=== PATIENT | female | born 1965 | race Caucasian/White ===

== ENCOUNTER → 2024-01-14 | Outpatient (CLI) | payer MEDICAID, SELFPAY ==
--- NOTE | 2024-01-14 14:00 | XR_ITS ---
Examination: Screening digital mammography, bilateral Computer aided detection 3-D breast Tomosynthesis, bilateral Date and time of exam: January 14, 2024 1405 hours Compared to March 28, 2021 Indication: Screening Technique: Nonmagnified MLO, CC views of the breasts to been obtained, reconstructed from 3-D Tomosynthesis images. R2 computer aided detection program utilized for evaluation of suspicious masses and/or abnormal calcifications. 3-D Tomosynthesis images obtained. Findings: The breasts are heterogeneously dense, which may obscure small masses 14 mm focal asymmetry outer left breast 3:00 position anterior depth 12 mm round focal asymmetry upper right breast MLO view, 4.9 cm from the nipple Impression: BI-RADS Category 0: Incomplete: Need additional imaging evaluation 14 mm focal asymmetry outer left breast 3:00 position, recommend follow-up spot tomographic views 12 mm round focal asymmetry upper right breast MLO view, 4.9 cm from the nipple, recommend follow-up spot tomographic views upper outer quadrant right breast Recommend bilateral breast sonography follow-up to complete the workup
== END | disposition home or self-care (01) ==
PROVIDERS: PCP Nurse Practitioner Family; Referring Provider Obstetrics & Gynecology; Visit Provider Obstetrics & Gynecology
DX: Z12.31 Encounter for screening mammogram for malignant neoplasm of breast (principal); N64.89 Other specified disorders of breast
CPT/HCPCS: 77063; 77067